=== PATIENT | male | born 1945 | race Caucasian/White ===

== ENCOUNTER 2019-12-04 13:45 | Emergency (ER) | payer MEDICARE, OTHER ==
[2019-12-04] MEDS ORDERED: SODIUM CHLORIDE 0.9% (FLUSH) 10 ML SYG IV PRN (13:52)
[2019-12-04] MEDS ORDERED: ASPIRIN (CHEWABLE) 81 MG TAB PO ONE (13:52)
--- NOTE | 2019-12-04 13:56 | ED.PDOC ---
History of Present Illness - General Chief Complaint: Chest Pain/NM Stated Complaint: lips tingling,indigestion Time Seen by Provider: 12/04/19 13:47 Source: patient Exam Limitations: no limitations - History of Present Illness Initial Comments: Patient is a 74-year-old male with history of hypertension who presents to ED for chest pain that began at 7:00 last night. States after eating dinner last night he developed achy, burning epigastric pain that felt like heartburn. The pain was severe this morning and he had an episode of tingling of his lips so he came to ED for evaluation. Denies nausea, shortness of breath, cough or fever. Allergies/Adverse Reactions: Allergies Penicillins Allergy (Verified 12/04/19 13:56) Home Medications: Ambulatory Orders Amlodipine Besylate 5 mg PO DAILY 12/04/19 Aspirin-Dipyridamole [Aggrenox 25-200 mg] 1 cap PO BID 12/04/19 Atorvastatin Calcium [Lipitor] 10 mg PO BEDTIME 12/04/19 Multiple Vitamins W/ Minerals [Centrum Adults] 1 tab PO DAILY 12/04/19 Review of Systems - Review of Systems Constitutional: Denies: chills, fever Respiratory: Denies: cough, short of breath Cardiology: States: chest pain. Denies: edema, palpitations, syncope Gastrointestinal/Abdominal: Denies: abdominal pain, nausea Musculoskeletal: Denies: back pain, neck pain Neurological: States: see HPI. Denies: headache All other Systems: Reviewed and Negative Family Medical History - Family History Father Family History: Unknown Living Status: Unknown Physical Exam - Physical Exam General Appearance: Alert, Comfortable, No apparent distress, Other - nontoxic appearing Neck: full range of motion, supple Respiratory: chest non-tender, lungs clear, normal breath sounds, no respiratory distress Cardiovascular/Chest: regular rate, rhythm, no edema Gastrointestinal/Abdominal: non tender, soft, no pulsatile mass Extremity: non-tender, no calf tenderness Neurologic: no motor/sensory deficits, alert, normal mood/affect Skin Exam: normal color, warm/dry Progress - Progress Progress: 12/04/19 14:51 Patient presents with achy, burning epigastric pain after eating dinner last night. Pain has been constant. Reports 2/10 at this time. Not associated with exertion. Denies SOB. EKG, troponin, imaging and VS are reassuring. with pain ongoing for > 12 hours and normal troponin I doubt ACS at this time. i have recommended he f/u with his PCP and customer solutions representative for continued evaluation. SRP given. - Results/Orders Results/Orders: EKG- NSR, rate 60, nml intervals, no ST abnormality Chest xray XR Chest one views Indication: Chest pain. Comparisons: None. Findings: Atheromatous plaque affects aortic knob. Heart size within normal limits. Left costophrenic angle is partly obscured. No pneumothorax. IMPRESSION: Left costophrenic angle obscuration reflect the presence of an epicardial fat pad lingular airspace opacity or effusion. A lateral may be helpful for further evaluation. 12/04/19 13:52 Sodium Chloride 0.9% (Flush) [Saline Flush Syringe] 3 ml IV PRN PRN Oxygen Stat Chest,1 View [RAD] Stat 12/04/19 13:53 EKG Assessment ONCE Oxygen Delivery Assessment: QSHIFT Pulse Oximetry Assessment DAILY 12/04/19 14:00 EKG STAT 12/05/19 09:00 Pulse Ox Daily Laboratory Results - last 24 hr 12/04/19 13:59 WBC 8.6 RBC 4.45 L Hgb 14.5 Hct 42.3 MCV 94.9 H MCH 32.7 H MCHC 34.4 RDW 13.1 Plt Count 258 MPV 7.7 Absolute Neuts (auto) 6.50 Absolute Lymphs (auto) 1.30 Absolute Monos (auto) 0.70 Absolute Eos (auto) 0.20 Absolute Basos (auto) 0.00 Neutrophils % 75.1 Lymphocytes % 14.7 L Monocytes % 7.7 Eosinophils % 2.0 Basophils % 0.5 PT 9.7 INR < 1.00 PTT (SP) 23.3 Sodium 139 Potassium 3.9 Chloride 104 Carbon Dioxide 25 Anion Gap 13.9 BUN 17 Creatinine 0.97 BUN/Creatinine Ratio 17.5 Random Glucose 133 H Serum Osmolality 281.0 Calcium 9.1 Magnesium 2.0 Creatine Kinase 87 CK-MB (CK-2) 2.4 CK-MB (CK-2) % Not Reportable Troponin I < 0.02 Departure - Departure Clinical Impression: Atypical chest pain Hypertension Qualifiers: Hypertension type: essential hypertension Qualified Code(s): I10 - Essential (primary) hypertension Time of Disposition: 14:50 Disposition: Discharge to Home or Self Care Condition: Good Departure Forms: ED Discharge - Pt. Copy, Patient Portal Self Enrollment Instructions: DI for Chest Pain Diet: resume usual diet Activity: increase activity as tolerated Home Medications: Ambulatory Orders Amlodipine Besylate 5 mg PO DAILY 12/04/19 Aspirin-Dipyridamole [Aggrenox 25-200 mg] 1 cap PO BID 12/04/19 Atorvastatin Calcium [Lipitor] 10 mg PO BEDTIME 12/04/19 Multiple Vitamins W/ Minerals [Centrum Adults] 1 tab PO DAILY 12/04/19 Comments: Follow up with your PCP and customer solutions representative within 1 week for recheck.
[2019-12-04 15:15] VITALS: BP 137/73; TEMP 97.3; O2SAT 95
== END 2019-12-04 14:56 | disposition home or self-care (01) ==
LOC: ER 13:45
DX: R07.89 Other chest pain (principal); I10 Essential (primary) hypertension; R20.2 Paresthesia of skin; R10.13 Epigastric pain; Z88.0 Allergy status to penicillin; Z79.899 Other long term (current) drug therapy